=== PATIENT | female | born 1945 | race Caucasian/White ===

== ENCOUNTER 2018-08-05 07:32 | Inpatient (IN) | payer MEDICARE, MEDICAID ==
[2018-08-05] VITALS (7 sets, daily range): BP systolic 119–145; BP diastolic 28–71
[~2018-08-05] VITALS: Ht 160 cm; Wt 76.7 kg
[~2018-08-05 07:32] MED LIST: BENA40TA9 MT; INSU100I28 SQ; METF-416 MT; PRAV80TA21 MT
[2018-08-05] MEDS ORDERED: ASPI-1158 MT (08:14)
[2018-08-05] MEDS ORDERED: TRAM50TA3 MT (08:14)
[2018-08-05] MEDS ORDERED: ATEN-42 MT (08:14)
[2018-08-05] MEDS ORDERED: ASPIRIN/SOD BICARB/CITRIC ACID 324MG TAB EFF ONE (08:31)
[2018-08-05] MEDS ORDERED: MIDAZOLAM HCL 2 MG/2 ML VIAL ONE (08:40)
[2018-08-05] MEDS ORDERED: IODIXANOL 320MG/ML 100 ML BOTTLE IV ONE (08:41)
[2018-08-05] MEDS ORDERED: FENTANYL CITRATE/PF 50MCG/ML 2ML VIAL ONE (08:41)
[2018-08-05] MEDS ORDERED: LIDOCAINE HCL 1% 20ML VIAL (Pyxis) INJ ONE (08:41)
[2018-08-05] MEDS ORDERED: IOHEXOL-300 100 ML BOTTLE ONE (08:41)
[2018-08-05 09:15] LABS: HEMATOCRIT 28.4 % (36.0-48.0); HEMOGLOBIN 8.9 g/dL (12.0-16.0); MEAN CORPUSCULAR VOLUME 82.9 fL (81.0-99.0); PLATELET 210 x1000/uL (130-400); RED BLOOD CELL COUNT 3.42 mill/uL (4.2-5.4); RED CELL DISTRIBUTION WIDTH 16.2 % (11.6-14.6)
[2018-08-05] MEDS ORDERED: CLOPIDOGREL 75MG TABLET ONE (10:17)
[2018-08-05] MEDS ORDERED: ATROPINE SULFATE 0.1MG/ML 10ML DISP.SYRIN ONE (10:21)
[2018-08-05] MEDS ORDERED: HEPARIN SODIUM 1,000 UNIT/1ML VIAL IV ONE (10:22)
[2018-08-05] MEDS ORDERED: NICARDIPINE 100MCG/ML 10ML VIAL (CATH LAB) IV ONE (10:22)
[2018-08-05] MEDS ORDERED: NITROGLYCERIN 50MCG/ML 10ML VIAL (CATH LAB) IV ONE (10:22)
[2018-08-05] MEDS ORDERED: MORPHINE SULFATE 2 MG/ML CPJ (NOT FOR IM USE) IV PRN (10:30)
[2018-08-05] MEDS ORDERED: ACETAMINOPHEN 325MG TABLET PO PRN (10:30)
[2018-08-05] MEDS ORDERED: DEXTROSE 50% WATER 50ML SYRINGE IV PRN (10:30)
[2018-08-05] MEDS ORDERED: ATROPINE SULFATE 1MG/10ML SYR IV PRN (10:30)
[2018-08-05] MEDS ORDERED: ONDANSETRON HCL 4MG/2ML INJ IV PRN (10:30)
[2018-08-05] MEDS ORDERED: SODIUM CHLORIDE 0.45% 1,000 ML IV ONE (11:15)
[2018-08-05] MEDS ORDERED: HYDROMORPHONE HCL/PF 2MG/ML CPJ IV PRN (11:30)
[2018-08-05] MEDS: BLOOD SUGAR DIAGNOSTIC STRIP TEST SCH ×3 (12:07→20:58)
[2018-08-05] MEDS: INSULIN LISPRO 100 UNITS/ML SUBCUT SCH ×3 (12:07→21:20)
[2018-08-05 13:54] LABS: TOTAL IRON BINDING CAPACITY 306 ug/dL (250-450)
[2018-08-05] MEDS: GABAPENTIN 300MG CAPSULE PO SCH ×2 (14:06→21:20)
[2018-08-05 14:27] LABS: VITAMIN B12 SERUM 501 pg/mL (211-911)
[2018-08-05] MEDS ORDERED: ATORVASTATIN CALCIUM 40MG TABLET PO SCH (21:00)
[2018-08-06] VITALS (9 sets, daily range): BP systolic 104–163; BP diastolic 42–71
[2018-08-06] MEDS: GABAPENTIN 300MG CAPSULE PO SCH ×2 (05:43→13:10)
[2018-08-06] MEDS: BLOOD SUGAR DIAGNOSTIC STRIP TEST SCH ×2 (06:50→11:25)
[2018-08-06] MEDS: INSULIN LISPRO 100 UNITS/ML SUBCUT SCH ×2 (07:08→12:11)
[2018-08-06 07:21] LABS: BASOPHILS % 0.9 % (0.0-2.0); EOSINOPHILS % 5.9 % (0.0-5.0); HEMOGLOBIN. 9.6 g/dL (12.0-16.0); LYMPHOCYTES % 36.5 % (20.0-50.0); MEAN CORPUSCULAR HEMOGLOBIN 26.2 pg (28.0-32.0); MEAN CORPUSCULAR VOLUME 81.8 fL (81.0-99.0); MEAN PLATELET VOLUME 8.8 fl (7.4-10.4); MONOCYTES % 9.1 % (2.0-8.0); NEUTROPHILS % 47.6 % (40.0-76.0); PLATELET 208 x1000/uL (130-400); RED BLOOD CELL COUNT 3.67 mill/uL (4.2-5.4); RED CELL DISTRIBUTION WIDTH 16.6 % (11.6-14.6)
[2018-08-06 08:47] LABS: CHLORIDE 111 mEq/L (98-107)
[2018-08-06] MEDS ORDERED: CLOPIDOGREL 75MG TABLET PO SCH (09:00)
[2018-08-06] MEDS ORDERED: ATENOLOL 25MG TABLET PO SCH (09:00)
[2018-08-06] MEDS ORDERED: ASPIRIN 81MG TABLET PO SCH (09:00)
== END 2018-08-06 15:30 | disposition home or self-care (01) | DRG 247 ==
LOC: CCL 07:32 → 3WST 07:33
PROVIDERS: ADMIT Specialist; ATTEND Specialist
PROC: 4A023N7 Measurement of Cardiac Sampling and Pressure, Left Heart, Percutaneous Approach (ICD-10-PCS; principal; 2018-08-05)
PROC: 027034Z Dilation of Coronary Artery, One Artery with Drug-eluting Intraluminal Device, Percutaneous Approach (ICD-10-PCS; 2018-08-05)
PROC: B2111ZZ Fluoroscopy of Multiple Coronary Arteries using Low Osmolar Contrast (ICD-10-PCS; 2018-08-05)
PROC: B2151ZZ Fluoroscopy of Left Heart using Low Osmolar Contrast (ICD-10-PCS; 2018-08-05)
PROC: 4A033BC Measurement of Arterial Pressure, Coronary, Percutaneous Approach (ICD-10-PCS; 2018-08-05)
DX: I25.10 Atherosclerotic heart disease of native coronary artery without angina pectoris (principal); I10 Essential (primary) hypertension; E78.5 Hyperlipidemia, unspecified; E11.9 Type 2 diabetes mellitus without complications; D50.9 Iron deficiency anemia, unspecified; I25.2 Old myocardial infarction
CPT/HCPCS: 36415; 80048; 82607; 82962; 83540; 83550; 85027; 85044; 85347; 92928; 93005; 93458; 93571; 93572; C1725; C1769; C1874; C1887; C1893; J0461; J1644; J1815; J2250; J3010; J3490; Q9967

== ENCOUNTER 2020-03-08 15:30 | Inpatient (IN) | payer MEDICARE, MEDICAID ==
[~2020-03-08] VITALS: Ht 160 cm; Wt 64.9 kg
[~2020-03-08 15:30] MED LIST changes: +ASPI-1158 MT; +ATEN-42 MT; +TRAM50TA3 MT
[2020-03-08] MEDS ORDERED: SODIUM CHLORIDE 0.9% 1,000 ML IV ONE (17:41)
[2020-03-08 17:51] LABS: BASOPHILS % 0.9 % (0.0-2.0); EOSINOPHILS % 1.9 % (0.0-5.0); HEMATOCRIT. 37.3 % (36.0-48.0); HEMOGLOBIN. 11.8 g/dL (12.0-16.0); LYMPHOCYTES % 22.4 % (20.0-50.0); MEAN CORPUSCULAR HEMOGLOBIN 25.2 pg (28.0-32.0); MEAN CORPUSCULAR VOLUME 79.4 fL (81.0-99.0); MEAN PLATELET VOLUME 9.6 fl (7.4-10.4); MONOCYTES % 7.6 % (2.0-8.0); NEUTROPHILS % 67.2 % (40.0-76.0); PLATELET 235 x1000/uL (130-400); RED BLOOD CELL COUNT 4.69 mill/uL (4.2-5.4); RED CELL DISTRIBUTION WIDTH 17.8 % (11.6-14.6)
[2020-03-08 17:55] LABS: CHLORIDE 102 mEq/L (98-107)
[2020-03-08 18:02] LABS: BETA HYDROXYBUTYRATE 0.2 mMol/L (0.0-0.3)
[2020-03-08 18:17] LABS: PROTHROMBIN TIME 10.6 sec (9.6-11.0)
[2020-03-08] MEDS ORDERED: INSULIN REGULAR (HUMULIN R) 300UNITS/3ML SUBCUT ONE (18:45)
[2020-03-08] MEDS ORDERED: ONDANSETRON HCL 4MG/2ML INJ IV PRN (21:00)
[2020-03-08] MEDS ORDERED: ACETAMINOPHEN 325MG TABLET PO PRN (21:00)
[2020-03-08] MEDS ORDERED: DIPHENHYDRAMINE 50MG/ML VIAL IV PRN (21:00)
[2020-03-08] MEDS ORDERED: LORAZEPAM 2MG/ML CPJ IV PRN (21:00)
[2020-03-08] MEDS ORDERED: ENOXAPARIN 40MG/0.4ML SYR SUBCUT SCH (21:00)
[2020-03-08] MEDS ORDERED: NA PHOS,M-B/NA PHOS,DI-BA ENEMA 118ML PR PRN (21:00)
[2020-03-08] MEDS ORDERED: MAGNESIUM/ALUMINUM HYDROXIDE/SIMETHICONE 30ML UDC PO PRN (21:00)
[2020-03-08] MEDS ORDERED: IPRATROPIUM/ALBUTEROL 0.5-3(2.5)MG/3ML NEB HHN PRN (21:00)
[2020-03-08] MEDS ORDERED: HYDRALAZINE 20MG/ML VIAL IV PRN (21:00)
[2020-03-08] MEDS ORDERED: DOCUSATE SODIUM 100MG CAPSULE PO PRN (21:00)
[2020-03-08] MEDS ORDERED: CLONIDINE 0.1MG TABLET PO PRN (21:00)
[2020-03-08] MEDS ORDERED: HYDROCODONE/ACETAMINOPHEN 10/325MG TABLET PO PRN (21:00)
[2020-03-08] MEDS ORDERED: MORPHINE SULFATE 2 MG/ML CPJ (NOT FOR IM USE) IV PRN (21:00)
[2020-03-08] MEDS ORDERED: GUAIFENESIN 200MG/10ML SUGAR FREE UDC PO PRN (21:00)
[2020-03-08] MEDS: INSULIN LISPRO 100 UNITS/ML SUBCUT SCH (21:00)
[2020-03-08] MEDS ORDERED: DEXTROSE 50% WATER 50ML SYRINGE IV PRN (21:00)
[2020-03-08] MEDS: BLOOD SUGAR DIAGNOSTIC STRIP TEST SCH (21:51)
[2020-03-08] MEDS: SODIUM CHLORIDE 0.9% INJ 3ML FLUSH IVF SCH (22:00)
[2020-03-08 22:10] VITALS: BP 162/68
[2020-03-08 22:44] LABS: CLARITY URINE CLEAR (CLEAR); COLOR URINE YELLOW (YELLOW); KETONES URINE NEGATIVE (NEGATIVE); LEUKOCYTE ESTERASE URINE NEGATIVE (NEGATIVE); NITRITE URINE NEGATIVE (NEGATIVE); OCCULT BLOOD URINE NEGATIVE (NEGATIVE); PH URINE 5.5 (4.5-8.0); PROTEIN URINE NEGATIVE (NEGATIVE); SPECIFIC GRAVITY URINE 1.023 (1.005-1.030); UROBILINOGEN URINE 0.2 E.U./dL (0.2-1.0)
[2020-03-08 23:30] VITALS: BP 132/38
[2020-03-08] MEDS: INSULIN GLARGINE UD 100 UNITS/ML SYR SUBCUT SCH (23:50)
[2020-03-09 00:01] VITALS: BP 162/68
[2020-03-09 04:00] VITALS: BP 142/62
[2020-03-09] MEDS: SODIUM CHLORIDE 0.9% INJ 3ML FLUSH IVF SCH ×2 (06:00→13:28)
[2020-03-09] MEDS: BLOOD SUGAR DIAGNOSTIC STRIP TEST SCH ×3 (06:14→16:35)
[2020-03-09] MEDS: INSULIN LISPRO 100 UNITS/ML SUBCUT SCH ×2 (06:22→13:27)
[2020-03-09 06:38] LABS: CHLORIDE 111 mEq/L (98-107)
[2020-03-09 06:53] LABS: BASOPHILS % 0.5 % (0.0-2.0); EOSINOPHILS % 3.1 % (0.0-5.0); HEMATOCRIT. 33.4 % (36.0-48.0); HEMOGLOBIN. 10.6 g/dL (12.0-16.0); LYMPHOCYTES % 28.6 % (20.0-50.0); MEAN CORPUSCULAR HEMOGLOBIN 25.2 pg (28.0-32.0); MEAN CORPUSCULAR VOLUME 79.4 fL (81.0-99.0); MONOCYTES % 6.5 % (2.0-8.0); NEUTROPHILS % 61.3 % (40.0-76.0); PLATELET 195 x1000/uL (130-400); RED CELL DISTRIBUTION WIDTH 17.2 % (11.6-14.6)
[2020-03-09 07:48] VITALS: BP 132/40
[2020-03-09 07:58] VITALS: BP 132/40
[2020-03-09] MEDS: INSULIN GLARGINE UD 100 UNITS/ML SYR SUBCUT SCH (09:25)
[2020-03-09 12:00] VITALS: BP 130/44
[2020-03-09 16:38] VITALS: BP 130/47
== END 2020-03-09 17:00 | disposition home or self-care (01) | DRG 638 ==
LOC: ER 15:30 → 8WST 20:15 → EDBEDREQTM 20:19 → EDBEDREQ 20:19 → ENRESERV 21:09
PROVIDERS: ADMIT Internal Medicine; ATTEND Internal Medicine
DX: E11.65 Type 2 diabetes mellitus with hyperglycemia (principal); E87.1 Hypo-osmolality and hyponatremia; E78.5 Hyperlipidemia, unspecified; E87.5 Hyperkalemia; I11.9 Hypertensive heart disease without heart failure; I25.10 Atherosclerotic heart disease of native coronary artery without angina pectoris; Z79.4 Long term (current) use of insulin; Z91.11 Patient's noncompliance with dietary regimen; Z95.1 Presence of aortocoronary bypass graft; Z79.899 Other long term (current) drug therapy; Z79.82 Long term (current) use of aspirin
CPT/HCPCS: 36415; 71045; 80053; 81003; 82010; 82962; 83036; 85025; 93005; 93970; 96372; 99285; J1650; J1815; J7030

== ENCOUNTER 2021-02-07 06:59 | Inpatient (IN) | payer MEDICARE, OTHER ==
[~2021-02-07] VITALS: Ht 160 cm; Wt 74.9 kg
[2021-02-07] VITALS (37 sets, daily range): BP systolic 89–179; BP diastolic 45–115
[~2021-02-07 06:59] MED LIST changes: -ASPI-1158 MT; +ASPI-1406 MT
[2021-02-07 07:42] LABS: HEMATOCRIT. 42.9 % (36.0-48.0); HEMOGLOBIN. 14.4 g/dL (12.0-16.0); MEAN CORPUSCULAR HEMOGLOBIN 29.6 pg (28.0-32.0); MEAN CORPUSCULAR VOLUME 88.6 fL (81.0-99.0); RED BLOOD CELL COUNT 4.85 mill/uL (4.2-5.4); RED CELL DISTRIBUTION WIDTH 14.1 % (11.6-14.6)
[2021-02-07] MEDS ORDERED: LIDOCAINE HCL 1% 20ML VIAL (Pyxis) INJ ONE (07:42)
[2021-02-07] MEDS ORDERED: IODIXANOL 320MG/ML 200ML BOTTLE ONE (07:43)
[2021-02-07 07:46] LABS: CHLORIDE 96 mEq/L (98-107)
[2021-02-07] MEDS ORDERED: VERAPAMIL HCL 2.5 MG/1 ML 2ML VIAL IV ONE (08:03)
[2021-02-07] MEDS ORDERED: FENTANYL CITRATE/PF 50MCG/ML 2ML VIAL ONE (08:03)
[2021-02-07] MEDS ORDERED: MIDAZOLAM HCL 2 MG/2 ML VIAL ONE (08:03)
[2021-02-07] MEDS ORDERED: ASPIRIN/SOD BICARB/CITRIC ACID 324MG TAB EFF ONE (08:08)
[2021-02-07 08:21] LABS: PLATELET 168 x1000/uL (130-400)
[2021-02-07] MEDS ORDERED: IOHEXOL-300 100 ML BOTTLE ONE (08:23)
[2021-02-07 08:25] LABS: PLATELET ESTIMATE NORMAL
[2021-02-07] MEDS ORDERED: ATROPINE SULFATE 0.1MG/ML 10ML DISP.SYRIN ONE (08:33)
[2021-02-07] MEDS ORDERED: CLOPIDOGREL 75MG TABLET ONE (09:02)
[2021-02-07] MEDS ORDERED: SODIUM CHLORIDE 0.45% 1,000 ML IV SCH (09:30)
[2021-02-07] MEDS ORDERED: ATROPINE SULFATE 1MG/10ML SYR IV PRN (09:30)
[2021-02-07] MEDS ORDERED: SODIUM CHLORIDE 0.45% 500 ML IV SCH (09:37)
[2021-02-07] MEDS ORDERED: DEXTROSE 50% WATER 50ML SYRINGE IV PRN (10:15)
[2021-02-07] MEDS: INSULIN LISPRO 100 UNITS/ML SUBCUT SCH ×4 (10:35→20:56)
[2021-02-07] MEDS: METOPROLOL TARTRATE 25MG TABLET PO SCH ×2 (11:12→20:40)
[2021-02-07] MEDS: ACETAMINOPHEN 325MG TABLET PO PRN (13:03)
[2021-02-07] MEDS: BLOOD SUGAR DIAGNOSTIC STRIP TEST SCH ×3 (13:40→21:00)
[2021-02-07] MEDS: AMLODIPINE 5MG TABLET PO SCH ×2 (13:57→20:41)
[2021-02-07 14:16] LABS: BG BASE EXCESS -1.4 mmol/L (-2.0-2.0); BG CARBOXYHEMOGLOBIN 0.8 % (0.5-1.5); BG DEOXYHEMOGLOBIN 2.1 % (0.0-5.0); BG FRACTION INSPIRED OXYGEN 36; BG HCO3 ACT 21.2 mmol/L (22.0-26.0); BG METHEMOGLOBIN 1.8 % (0.0-1.5); BG OXYGEN SATURATION 97.8 % (92.0-98.5); BG OXYHEMOGLOBIN 95.3 % (94.0-97.0); BG PCO2 29.8 mmHg (35.0-45.0); BG PO2 98.5 mmHg (75.0-100.0); BG SAMPLE SITE LEFT RADIAL; BG TOTAL HEMOGLOBIN 13.7 g/dL (12.0-18.0); BG VENT MODE NASAL CANNULA
[2021-02-07] MEDS ORDERED: ROSU20TA2 PO (14:43)
[2021-02-07] MEDS ORDERED: AMLO10TA80 PO (14:43)
[2021-02-07] MEDS ORDERED: TOLT2TAB2 PO (14:43)
[2021-02-07] MEDS ORDERED: LISI40TA13 PO (14:43)
[2021-02-07] MEDS ORDERED: GLIP5TAB12 PO (14:43)
[2021-02-07] MEDS ORDERED: INSULIN GLARGINE UD 100 UNITS/ML SYR SUBCUT SCH (16:00)
[2021-02-07 19:01] LABS: CLARITY URINE CLOUDY (CLEAR); COLOR URINE ORANGE (YELLOW); KETONES URINE NEGATIVE (NEGATIVE); LEUKOCYTE ESTERASE URINE 2+ (NEGATIVE); NITRITE URINE POSITIVE (NEGATIVE); OCCULT BLOOD URINE 3+ (NEGATIVE); PROTEIN URINE 2+ (NEGATIVE); SPECIFIC GRAVITY URINE 1.047 (1.005-1.030)
[2021-02-07 19:12] LABS: *AMPHETAMINES SCREEN URINE NEGATIVE (NEGATIVE); *BARBITURATES SCREEN URINE NEGATIVE (NEGATIVE); *BENZODIAZEPINES SCREEN URINE PRESUMTIVE POSITIVE (NEGATIVE)
[2021-02-07 19:13] LABS: *COCAINE SCREEN URINE NEGATIVE (NEGATIVE); METHADONE URINE SCREEN NEGATIVE (NEGATIVE); OPIATES URINE SCREEN NEGATIVE (NEGATIVE); PHENCYCLIDINE URINE SCREEN NEGATIVE (NEGATIVE)
[2021-02-07 19:14] LABS: CANNABINOID URINE SCREEN NEGATIVE (NEGATIVE)
[2021-02-07] MEDS: ATORVASTATIN CALCIUM 40MG TABLET PO SCH (20:40)
[2021-02-08] VITALS (21 sets, daily range): BP systolic 106–144; BP diastolic 47–85
[2021-02-08] MEDS: INSULIN GLARGINE UD 100 UNITS/ML SYR SUBCUT SCH ×3 (00:01→21:18)
[2021-02-08 05:55] LABS: BASOPHILS % 0.2 % (0.0-2.0); EOSINOPHILS % 0.1 % (0.0-5.0); HEMATOCRIT. 35.6 % (36.0-48.0); HEMOGLOBIN. 11.6 g/dL (12.0-16.0); LYMPHOCYTES % 9.2 % (20.0-50.0); MEAN CORPUSCULAR HEMOGLOBIN 28.7 pg (28.0-32.0); MEAN PLATELET VOLUME 8.7 fl (7.4-10.4); MONOCYTES % 12.2 % (2.0-8.0); NEUTROPHILS % 78.3 % (40.0-76.0); PLATELET 129 x1000/uL (130-400); RED BLOOD CELL COUNT 4.04 mill/uL (4.2-5.4); RED CELL DISTRIBUTION WIDTH 14.2 % (11.6-14.6)
[2021-02-08] MEDS: BLOOD SUGAR DIAGNOSTIC STRIP TEST SCH ×3 (06:32→21:00)
[2021-02-08] MEDS: INSULIN LISPRO 100 UNITS/ML SUBCUT SCH ×4 (06:38→21:17)
[2021-02-08] MEDS: CLOPIDOGREL 75MG TABLET PO SCH (08:11)
[2021-02-08] MEDS: METOPROLOL TARTRATE 25MG TABLET PO SCH (08:11)
[2021-02-08] MEDS: ASPIRIN 81MG TABLET PO SCH (08:11)
[2021-02-08] MEDS: AMLODIPINE 5MG TABLET PO SCH ×2 (08:11→21:18)
[2021-02-08] MEDS ORDERED: POTASSIUM CHLORIDE 20MEQ/PACKET PO NR (10:15)
[2021-02-08] MEDS ORDERED: INSULIN LISPRO 100 UNITS/ML SUBCUT SCH (12:15)
[2021-02-08] MEDS: CEFTRIAXONE 1,000 MG in DEXTROSE 5% WATER 50 ML IV SCH (12:30)
[2021-02-08] MEDS: ACETAMINOPHEN 325MG TABLET PO PRN ×2 (12:46→17:06)
[2021-02-08] MEDS: LOSARTAN POTASSIUM 25 MG TABLET PO SCH (12:50)
[2021-02-08 14:27] LABS: T4 FREE 1.07 ng/dL (0.76-1.46)
[2021-02-08] MEDS: FERROUS SULFATE 325MG TABLET PO SCH (17:06)
[2021-02-08] MEDS: ATORVASTATIN CALCIUM 40MG TABLET PO SCH (21:18)
[2021-02-08] MEDS: CARVEDILOL 3.125 MG TABLET PO SCH (21:19)
[2021-02-09] VITALS (12 sets, daily range): BP systolic 100–155; BP diastolic 38–77
[2021-02-09] MEDS: BLOOD SUGAR DIAGNOSTIC STRIP TEST SCH ×4 (06:16→21:00)
[2021-02-09 07:02] LABS: HEMATOCRIT. 33.8 % (36.0-48.0); HEMOGLOBIN. 11.6 g/dL (12.0-16.0); MEAN CORPUSCULAR HEMOGLOBIN 29.8 pg (28.0-32.0); MEAN CORPUSCULAR VOLUME 87.1 fL (81.0-99.0); MEAN PLATELET VOLUME 9.4 fl (7.4-10.4); PLATELET 138 x1000/uL (130-400); RED BLOOD CELL COUNT 3.88 mill/uL (4.2-5.4); RED CELL DISTRIBUTION WIDTH 14.2 % (11.6-14.6)
[2021-02-09] MEDS: INSULIN LISPRO 100 UNITS/ML SUBCUT SCH ×4 (09:13→21:42)
[2021-02-09] MEDS: INSULIN GLARGINE UD 100 UNITS/ML SYR SUBCUT SCH ×2 (09:13→21:42)
[2021-02-09] MEDS: ASPIRIN 81MG TABLET PO SCH (09:14)
[2021-02-09] MEDS: FERROUS SULFATE 325MG TABLET PO SCH ×2 (09:14→17:59)
[2021-02-09] MEDS: CARVEDILOL 3.125 MG TABLET PO SCH ×2 (09:14→21:40)
[2021-02-09] MEDS: ACETAMINOPHEN 325MG TABLET PO PRN ×2 (09:15→14:51)
[2021-02-09] MEDS: CLOPIDOGREL 75MG TABLET PO SCH (09:15)
[2021-02-09] MEDS: LOSARTAN POTASSIUM 25 MG TABLET PO SCH (09:15)
[2021-02-09] MEDS: AMLODIPINE 5MG TABLET PO SCH ×2 (09:15→21:40)
[2021-02-09] MEDS: CEFTRIAXONE 1,000 MG in DEXTROSE 5% WATER 50 ML IV SCH (12:10)
[2021-02-09 15:27] LABS: PLATELET ESTIMATE NORMAL
[2021-02-09] MEDS ORDERED: LOPERAMIDE HCL 2MG CAPSULE PO PRN (18:15)
[2021-02-09] MEDS ORDERED: TRAMADOL 50MG TABLET PO PRN (18:30)
[2021-02-09] MEDS ORDERED: INSULIN LISPRO 100 UNITS/ML SUBCUT NR (18:30)
[2021-02-09] MEDS: ATORVASTATIN CALCIUM 40MG TABLET PO SCH (21:39)
[2021-02-10] VITALS (11 sets, daily range): BP systolic 101–154; BP diastolic 48–105
[2021-02-10] MEDS: BLOOD SUGAR DIAGNOSTIC STRIP TEST SCH ×3 (06:03→16:31)
[2021-02-10 06:36] LABS: HEMATOCRIT. 33.4 % (36.0-48.0); HEMOGLOBIN. 11.1 g/dL (12.0-16.0); MEAN CORPUSCULAR HEMOGLOBIN 29.2 pg (28.0-32.0); MEAN CORPUSCULAR VOLUME 87.5 fL (81.0-99.0); MEAN PLATELET VOLUME 9.3 fl (7.4-10.4); PLATELET 161 x1000/uL (130-400); RED BLOOD CELL COUNT 3.81 mill/uL (4.2-5.4); RED CELL DISTRIBUTION WIDTH 14.2 % (11.6-14.6)
[2021-02-10 06:49] LABS: CHLORIDE 108 mEq/L (98-107)
[2021-02-10] MEDS: CLOPIDOGREL 75MG TABLET PO SCH (08:20)
[2021-02-10] MEDS: ASPIRIN 81MG TABLET PO SCH (08:20)
[2021-02-10] MEDS: INSULIN LISPRO 100 UNITS/ML SUBCUT SCH ×3 (08:20→17:37)
[2021-02-10] MEDS: FERROUS SULFATE 325MG TABLET PO SCH ×2 (08:20→17:37)
[2021-02-10] MEDS: AMLODIPINE 5MG TABLET PO SCH (08:23)
[2021-02-10] MEDS: CARVEDILOL 3.125 MG TABLET PO SCH (08:23)
[2021-02-10] MEDS: LOSARTAN POTASSIUM 25 MG TABLET PO SCH (08:23)
[2021-02-10] MEDS: INSULIN GLARGINE UD 100 UNITS/ML SYR SUBCUT SCH (10:04)
[2021-02-10] MEDS: CEFTRIAXONE 1,000 MG in DEXTROSE 5% WATER 50 ML IV SCH (12:58)
[2021-02-10 15:20] LABS: PLATELET ESTIMATE NORMAL
[2021-02-10] MEDS ORDERED: FERR325T23 PO (16:11)
[2021-02-10] MEDS ORDERED: CLOP75TA15 PO (16:11)
[2021-02-10] MEDS ORDERED: COR3 PO (16:11)
[2021-02-10] MEDS ORDERED: AMLO5TAB88 PO (16:11)
[2021-02-10] MEDS ORDERED: LIP40 PO (16:11)
[2021-02-10] MEDS ORDERED: LOSA25TA3 PO (16:11)
[2021-02-10] MEDS ORDERED: AMOX1TAB16 MT (16:12)
[2021-02-10] MEDS ORDERED: ASPIRIN 81MG TABLET PO SCH (17:00)
== END 2021-02-10 18:00 | disposition home health service (06) | DRG 853 ==
LOC: ER 07:11 → ORIP 07:51 → CVICU 10:18 → 3WST 02-08 16:58
PROVIDERS: ADMIT Internal Medicine; ATTEND Internal Medicine
PROC: 4A023N7 Measurement of Cardiac Sampling and Pressure, Left Heart, Percutaneous Approach (ICD-10-PCS; principal; 2021-02-07)
PROC: 027035Z Dilation of Coronary Artery, One Artery with Two Drug-eluting Intraluminal Devices, Percutaneous Approach (ICD-10-PCS; 2021-02-07)
PROC: B211YZZ Fluoroscopy of Multiple Coronary Arteries using Other Contrast (ICD-10-PCS; 2021-02-07)
PROC: B213YZZ Fluoroscopy of Multiple Coronary Artery Bypass Grafts using Other Contrast (ICD-10-PCS; 2021-02-07)
DX: A41.9 Sepsis, unspecified organism (principal); I21.09 ST elevation (STEMI) myocardial infarction involving other coronary artery of anterior wall; G93.41 Metabolic encephalopathy; I50.23 Acute on chronic systolic (congestive) heart failure; E44.1 Mild protein-calorie malnutrition; E87.1 Hypo-osmolality and hyponatremia; N30.90 Cystitis, unspecified without hematuria; E11.65 Type 2 diabetes mellitus with hyperglycemia; E78.5 Hyperlipidemia, unspecified; I67.1 Cerebral aneurysm, nonruptured; R00.1 Bradycardia, unspecified; Z20.822 Contact with and (suspected) exposure to COVID-19; E87.8 Other disorders of electrolyte and fluid balance, not elsewhere classified; I11.0 Hypertensive heart disease with heart failure; I25.10 Atherosclerotic heart disease of native coronary artery without angina pectoris; Z86.73 Personal history of transient ischemic attack (TIA), and cerebral infarction without residual deficits; I25.2 Old myocardial infarction; Z95.1 Presence of aortocoronary bypass graft; Z83.3 Family history of diabetes mellitus; Z68.29 Body mass index [BMI] 29.0-29.9, adult; B96.20 Unspecified Escherichia coli [E. coli] as the cause of diseases classified elsewhere
CPT/HCPCS: 36415; 36600; 71045; 78580; 80048; 80053; 80061; 80305; 81003; 82140; 82270; 82375; 82805; 82962; 83540; 83550; 83735; 83880; 84439; 84443; 84481; 84484; 85025; 85044; 85347; 87077; 87186; 87493; 92928; 93005; 93306; 93458; 97116; 97162; 99291; C1769; C1874; C1887; C1893; J0461; J0696; J1644; J1815; J2250; J3010; J3490; J7060; Q9967

== ENCOUNTER 2021-07-05 12:44 | Emergency (ER) | payer MEDICARE, MEDICAID ==
[~2021-07-05] VITALS: Ht 160 cm; Wt 73.0 kg
[~2021-07-05 12:44] MED LIST changes: +AMLO5TAB88 PO; +AMOX1TAB16 MT; -ATEN-42 MT; -BENA40TA9 MT; +CLOP75TA15 PO; +COR3 PO; +FERR325T23 PO; +GLIP5TAB12 PO; +LIP40 PO; +LOSA25TA3 PO; -PRAV80TA21 MT; +TOLT2TAB18 PO
[2021-07-05] MEDS ORDERED: HYDROCODONE/ACETAMINOPHEN 5/325MG TABLET PO ONE (17:00)
[2021-07-05] MEDS ORDERED: HYDROCODONE/ACETAMINOPHEN 5/325MG TABLET PO SCH (21:15)
[2021-07-05 22:43] VITALS: BP 168/73
== END 2021-07-05 23:05 | disposition home or self-care (01) ==
LOC: ER 12:44
DX: M54.9 Dorsalgia, unspecified (principal); M25.552 Pain in left hip; E11.9 Type 2 diabetes mellitus without complications; I10 Essential (primary) hypertension; I25.2 Old myocardial infarction; Z79.4 Long term (current) use of insulin; Z86.73 Personal history of transient ischemic attack (TIA), and cerebral infarction without residual deficits; Z79.82 Long term (current) use of aspirin
CPT/HCPCS: 72192; 73502; 73560; 99284

== ENCOUNTER 2022-07-08 13:41 | Inpatient (IN) | payer MEDICARE, MEDICAID ==
[~2022-07-08] VITALS: Ht 160 cm; Wt 77.6 kg
[~2022-07-08 13:41] MED LIST changes: -AMLO5TAB88 PO; -AMOX1TAB16 MT; -COR3 PO; +COR6 PO; -GLIP5TAB12 PO; -INSU100I28 SQ; +LANTUSUD SUBCUT; +LEVO750T68 MT; -LOSA25TA3 PO; +LOSA50TA3 PO; +NYST15CR36 TOP; +SODI473S22 TOP
[2022-07-08 14:36] LABS: BASOPHILS % 0.4 % (0.0-2.0); HEMATOCRIT. 40.6 % (36.0-48.0); HEMOGLOBIN. 13.3 g/dL (12.0-16.0); LYMPHOCYTES % 12.2 % (20.0-50.0); MEAN CORPUSCULAR HEMOGLOBIN 28.8 pg (28.0-32.0); MONOCYTES % 10.1 % (2.0-8.0); NEUTROPHILS % 77.3 % (40.0-76.0); PLATELET 148 x1000/uL (130-400); RED BLOOD CELL COUNT 4.61 mill/uL (4.2-5.4); RED CELL DISTRIBUTION WIDTH 15.1 % (11.6-14.6)
[2022-07-08 14:41] LABS: CHLORIDE 103 mEq/L (98-107)
[2022-07-08 15:00] LABS: CREATINE KINASE 1389 IU/L (26-192)
[2022-07-08 15:24] LABS: CLARITY URINE CLOUDY (CLEAR); COLOR URINE YELLOW (YELLOW); KETONES URINE TRACE (NEGATIVE); LEUKOCYTE ESTERASE URINE NEGATIVE (NEGATIVE); NITRITE URINE NEGATIVE (NEGATIVE); OCCULT BLOOD URINE 1+ (NEGATIVE); PH URINE 5.5 (4.5-8.0); PROTEIN URINE 2+ (NEGATIVE); SPECIFIC GRAVITY URINE 1.023 (1.005-1.030)
[2022-07-08 15:31] LABS: PROTHROMBIN TIME 10.9 sec (9.6-11.0)
[2022-07-08] MEDS ORDERED: SODIUM CHLORIDE 0.9% 1,000 ML IV ONE (15:45)
[2022-07-08] MEDS: CLONIDINE 0.1MG TABLET PO PRN (22:04)
[2022-07-09 01:01] VITALS: BP 141/67
[2022-07-09] MEDS ORDERED: HYDROCODONE/ACETAMINOPHEN 10/325MG TABLET PO PRN (02:00)
[2022-07-09] MEDS ORDERED: DEXTROSE 50% WATER 50ML SYRINGE IV PRN (02:00)
[2022-07-09] MEDS ORDERED: NON FORMULARY PATIENT HOME MED XX SCH (02:15)
[2022-07-09] MEDS ORDERED: NALOXONE HCL 0.4MG/ML VIAL IV PRN (02:15)
[2022-07-09 04:00] VITALS: BP 104/64
[2022-07-09] MEDS: ACETAMINOPHEN 325MG TABLET PO PRN (05:26)
[2022-07-09] MEDS: BLOOD SUGAR DIAGNOSTIC STRIP TEST SCH ×4 (05:36→21:32)
[2022-07-09] MEDS: INSULIN LISPRO 100 UNITS/ML SUBCUT SCH ×4 (06:41→21:31)
[2022-07-09 06:59] LABS: HEMATOCRIT. 41.2 % (36.0-48.0); HEMOGLOBIN. 13.7 g/dL (12.0-16.0); MEAN CORPUSCULAR HEMOGLOBIN 29.2 pg (28.0-32.0); MEAN CORPUSCULAR VOLUME 87.9 fL (81.0-99.0); RED BLOOD CELL COUNT 4.68 mill/uL (4.2-5.4); RED CELL DISTRIBUTION WIDTH 14.8 % (11.6-14.6)
[2022-07-09] MEDS: METFORMIN HCL 500MG TABLET PO SCH ×2 (07:10→16:28)
[2022-07-09 07:13] LABS: CHLORIDE 107 mEq/L (98-107)
[2022-07-09 07:33] LABS: CREATINE KINASE 1067 IU/L (26-192); HDL CHOLESTEROL 38 mg/dL (40-59); LDL CHOLESTEROL 55 mg/dL (5-100)
[2022-07-09] MEDS: ASPIRIN 81MG TABLET PO SCH (09:06)
[2022-07-09] MEDS: FERROUS SULFATE 325MG TABLET PO SCH ×2 (09:07→16:28)
[2022-07-09] MEDS: CARVEDILOL 6.25 MG TABLET PO SCH ×2 (09:07→21:30)
[2022-07-09] MEDS: CLOPIDOGREL 75MG TABLET PO SCH (09:07)
[2022-07-09] MEDS: LOSARTAN POTASSIUM 50 MG TABLET PO SCH (09:07)
[2022-07-09] MEDS: OXYBUTYNIN CHLORIDE 5MG TABLET PO SCH ×3 (09:11→16:28)
[2022-07-09] MEDS: INSULIN GLARGINE 100 UNITS/ML SUBCUT SCH ×2 (10:03→21:31)
[2022-07-09 14:00] VITALS: BP 116/62
[2022-07-09 14:11] LABS: PLATELET ESTIMATE DECREASED
[2022-07-09 14:12] LABS: MEAN PLATELET VOLUME 9.8 fl (7.4-10.4); PLATELET 116 x1000/uL (130-400)
[2022-07-09] MEDS: ENOXAPARIN 40MG/0.4ML SYR SUBCUT SCH ×2 (18:11→18:12)
[2022-07-09 20:00] VITALS: BP 128/53
[2022-07-09] MEDS: ATORVASTATIN CALCIUM 40MG TABLET PO SCH (21:29)
[2022-07-10] VITALS: BP 137/54
[2022-07-10 04:00] VITALS: BP 109/52
[2022-07-10] MEDS: BLOOD SUGAR DIAGNOSTIC STRIP TEST SCH ×3 (05:40→20:49)
[2022-07-10] MEDS: FERROUS SULFATE 325MG TABLET PO SCH ×2 (06:10→18:09)
[2022-07-10] MEDS: METFORMIN HCL 500MG TABLET PO SCH ×2 (06:10→18:09)
[2022-07-10] MEDS: INSULIN LISPRO 100 UNITS/ML SUBCUT SCH ×4 (06:11→21:07)
[2022-07-10 08:00] VITALS: BP 100/44
[2022-07-10] MEDS: OXYBUTYNIN CHLORIDE 5MG TABLET PO SCH ×3 (08:38→18:09)
[2022-07-10] MEDS: ASPIRIN 81MG TABLET PO SCH (08:38)
[2022-07-10] MEDS: CLOPIDOGREL 75MG TABLET PO SCH (08:38)
[2022-07-10] MEDS: LOSARTAN POTASSIUM 50 MG TABLET PO SCH (09:00)
[2022-07-10] MEDS: CARVEDILOL 6.25 MG TABLET PO SCH ×2 (09:00→21:06)
[2022-07-10] MEDS: INSULIN GLARGINE 100 UNITS/ML SUBCUT SCH ×2 (09:19→21:08)
[2022-07-10 12:00] VITALS: BP 107/51
[2022-07-10 16:00] VITALS: BP 105/48
[2022-07-10] MEDS: ENOXAPARIN 40MG/0.4ML SYR SUBCUT SCH (18:09)
[2022-07-10 20:00] VITALS: BP 150/64
[2022-07-10] MEDS: ATORVASTATIN CALCIUM 40MG TABLET PO SCH (21:06)
[2022-07-11] VITALS: BP 132/57
[2022-07-11 04:00] VITALS: BP 158/68
[2022-07-11] MEDS: INSULIN LISPRO 100 UNITS/ML SUBCUT SCH ×4 (05:42→21:23)
[2022-07-11] MEDS: BLOOD SUGAR DIAGNOSTIC STRIP TEST SCH ×4 (05:42→21:25)
[2022-07-11] MEDS: FERROUS SULFATE 325MG TABLET PO SCH ×2 (06:11→18:13)
[2022-07-11] MEDS: METFORMIN HCL 500MG TABLET PO SCH ×2 (06:11→18:13)
[2022-07-11 08:00] VITALS: BP 94/55
[2022-07-11] MEDS: CLOPIDOGREL 75MG TABLET PO SCH (08:47)
[2022-07-11] MEDS: ASPIRIN 81MG TABLET PO SCH (08:47)
[2022-07-11] MEDS: ACETAMINOPHEN 325MG TABLET PO PRN (08:50)
[2022-07-11] MEDS: OXYBUTYNIN CHLORIDE 5MG TABLET PO SCH ×3 (08:52→18:13)
[2022-07-11] MEDS: LOSARTAN POTASSIUM 50 MG TABLET PO SCH (09:00)
[2022-07-11] MEDS: CARVEDILOL 6.25 MG TABLET PO SCH ×2 (09:00→21:24)
[2022-07-11] MEDS: INSULIN GLARGINE 100 UNITS/ML SUBCUT SCH ×2 (10:12→21:24)
[2022-07-11 16:00] VITALS: BP 112/52
[2022-07-11] MEDS: ENOXAPARIN 40MG/0.4ML SYR SUBCUT SCH (18:15)
[2022-07-11 20:00] VITALS: BP 190/76
[2022-07-11] MEDS: CLONIDINE 0.1MG TABLET PO PRN (21:24)
[2022-07-11] MEDS: ATORVASTATIN CALCIUM 40MG TABLET PO SCH (21:25)
[2022-07-12] VITALS: BP 109/59
[2022-07-12 04:00] VITALS: BP 134/65
[2022-07-12] MEDS: INSULIN LISPRO 100 UNITS/ML SUBCUT SCH ×3 (06:14→17:26)
[2022-07-12] MEDS: BLOOD SUGAR DIAGNOSTIC STRIP TEST SCH ×3 (06:14→16:38)
[2022-07-12 08:00] VITALS: BP 148/100
[2022-07-12] MEDS ORDERED: LANTUSUD SUBCUT (08:47)
[2022-07-12] MEDS: METFORMIN HCL 500MG TABLET PO SCH ×2 (08:58→17:21)
[2022-07-12] MEDS: FERROUS SULFATE 325MG TABLET PO SCH ×2 (08:59→17:21)
[2022-07-12] MEDS: CLOPIDOGREL 75MG TABLET PO SCH (08:59)
[2022-07-12] MEDS: LOSARTAN POTASSIUM 50 MG TABLET PO SCH (09:00)
[2022-07-12] MEDS: CARVEDILOL 6.25 MG TABLET PO SCH (09:00)
[2022-07-12] MEDS: ASPIRIN 81MG TABLET PO SCH (09:00)
[2022-07-12] MEDS: OXYBUTYNIN CHLORIDE 5MG TABLET PO SCH ×3 (09:02→17:21)
[2022-07-12] MEDS: INSULIN GLARGINE 100 UNITS/ML SUBCUT SCH (11:40)
[2022-07-12 12:00] VITALS: BP 114/76
[2022-07-12 15:22] VITALS: BP 114/78
[2022-07-12 16:00] VITALS: BP 131/51
[2022-07-12] MEDS: ENOXAPARIN 40MG/0.4ML SYR SUBCUT SCH (17:27)
== END 2022-07-12 19:49 | disposition home health service (06) | DRG 179 ==
LOC: ER 14:18 → 7EST 16:36 → EDBEDREQTM 16:40 → EDBEDREQ 16:40 → ENRESERV 23:43
PROVIDERS: ADMIT Internal Medicine; ATTEND Internal Medicine
DX: U07.1 COVID-19 (principal); R27.0 Ataxia, unspecified; E66.9 Obesity, unspecified; E78.5 Hyperlipidemia, unspecified; I10 Essential (primary) hypertension; R74.01 Elevation of levels of liver transaminase levels; R20.2 Paresthesia of skin; E11.65 Type 2 diabetes mellitus with hyperglycemia; M21.372 Foot drop, left foot; R74.8 Abnormal levels of other serum enzymes; Z68.30 Body mass index [BMI] 30.0-30.9, adult; Z86.79 Personal history of other diseases of the circulatory system; Z79.899 Other long term (current) drug therapy; I25.2 Old myocardial infarction; Z86.73 Personal history of transient ischemic attack (TIA), and cerebral infarction without residual deficits; Z83.3 Family history of diabetes mellitus
CPT/HCPCS: 36415; 70551; 71045; 80048; 80053; 80061; 81003; 82550; 82962; 83036; 84145; 84443; 84484; 85025; 87426; 97162; 99285; C9803; J1650; J1815; J7030